=== PATIENT | male | born 1980 | race Two or more races ===

== ENCOUNTER 2022-08-10 01:03 | Emergency (ER) | payer MEDICAID, OTHER ==
[~2022-08-10] VITALS: Ht 188 cm; Wt 173.0 kg
[2022-08-10 02:03] VITALS: BP 132/85
[2022-08-10] MEDS ORDERED: KETOROLAC TROMETH 60MG/2ML VIAL IM ONE (02:45)
== END 2022-08-10 04:31 | disposition home or self-care (01) ==
LOC: ER 01:13
DX: R07.89 Other chest pain (principal); M79.18 Myalgia, other site; V43.52XA Car driver injured in collision with other type car in traffic accident, initial encounter; Y93.89 Activity, other specified; Y92.89 Other specified places as the place of occurrence of the external cause; Y99.8 Other external cause status
CPT/HCPCS: 96372; 99283; J1885